=== PATIENT | male | born 1950 | race Caucasian/White ===

== ENCOUNTER 2022-12-07 12:23 | Emergency (ER) | payer MEDICARE, OTHER ==
[2022-12-07] MEDS ORDERED: Iopamidol 755 Mg/ML 100 ML Bottle IVPUSH ONE (14:58)
[2022-12-07] MEDS ORDERED: Sodium Chloride 0.9% 10 ML Syringe FLUSH ONE (15:00)
[2022-12-07] MEDS ORDERED: cefTRIAXone 2 GM in Sodium Chloride 0.9% 100 ML IV ONE (17:36)
[2022-12-07] MEDS ORDERED: Naproxen 500 MG Tab PO ONE (17:55)
[2022-12-07] MEDS ORDERED: Famotidine 20 MG Tab PO ONE (17:56)
== END 2022-12-07 20:00 ==
LOC: JD.ED 12:23
DX: I80.01 Phlebitis and thrombophlebitis of superficial vessels of right lower extremity (principal); N39.0 Urinary tract infection, site not specified; Z88.0 Allergy status to penicillin; Z79.82 Long term (current) use of aspirin
CPT/HCPCS: 36415; 71045; 71275; 80053; 81001; 84484; 85025; 85610; 85730; 87086; 93005; 93971; 96365; 99285; A9270; J0696; J3490; 87088; 87186

== ENCOUNTER 2025-01-03 09:20 | Inpatient (IN) | payer MEDICAID, MEDICARE, OTHER ==
[2025-01-03 09:46] LABS: BASOPHILS ABSOLUTE AUTO 0.3 K/mm3 (0.0-0.2); BASOPHILS PERCENT AUTO 1.1 % (0.0-1.0); EOSINOPHILS ABSOLUTE AUTO 0.2 K/mm3 (0.0-0.4); EOSINOPHILS PERCENT AUTO 0.6 % (0.0-6.0); HEMATOCRIT 66.4 % (42.0-52.0); HEMOGLOBIN 19.1 gm/dl (14.0-18.0); IMMATURE GRAN ABSOLUTE AUTO 1.15 K/mm3 (0.00-0.05); IMMATURE GRAN PERCENT AUTO 3.7 % (0.0-0.4); LYMPHOCYTES PERCENT AUTO 9.6 % (24.0-44.0); MEAN CORPUSCULAR HEMOGLOBIN 25.7 pg (28.0-32.0); MEAN CORPUSCULAR HGB CONC 28.8 g/dl (32.0-36.0); MEAN CORPUSCULAR VOLUME 89.4 fl (83.0-99.0); MONOCYTES ABSOLUTE AUTO 0.8 K/mm3 (0.0-0.8); MONOCYTES PERCENT AUTO 2.4 % (0.0-8.0); NEUTROPHILS ABSOLUTE AUTO 25.8 K/mm3 (1.8-7.7); NEUTROPHILS PERCENT AUTO 82.6 % (41.0-71.0); NRBC ABSOLUTE 0.04 (0.00-0.02); NRBC PERCENT 0.1 % (0.0-0.2); PLATELET COUNT,PLT 93 K/mm3 (150-400); RED BLOOD CELL COUNT 7.43 M/mm3 (4.52-5.90); WHITE BLOOD CELL COUNT,WBC 31.27 K/mm3 (3.9-11.3)
[2025-01-03 09:58] LABS: APPEARANCE,URINE SLT CLOUDY (Clear); BILIRUBIN,URINE NEGATIVE (Negative); COLOR,URINE DARK YELLOW (Yellow); GLUCOSE,URINE NEGATIVE (Negative); KETONES,URINE NEGATIVE (Negative); LEUKOCYTE ESTERASE,URINE NEGATIVE (Negative); NITRITE,URINE NEGATIVE (Negative); OCCULT BLOOD,URINE NEGATIVE (Negative); PH,URINE 5.5 (5.0-8.0); PROTEIN,URINE TRACE (Negative)
[2025-01-03 10:05] LABS: BACTERIA,URINE FEW /hpf (FEW); MUCUS,URINE MODERATE /hpf (FEW); RBC,URINE 0-5 /hpf (0-5); SQUAMOUS EPITHELIAL CELLS,UR 0-5 /hpf (0-5); WBC,URINE 0-5 /hpf (0-5)
[2025-01-03] MEDS: Sodium Chloride 0.9% 500 ML IV ONE ×2 (10:07→11:17)
[2025-01-03] MEDS: Sodium Chloride 0.9% 10 ML Syringe FLUSH PRN (10:07)
[2025-01-03 10:09] LABS: LACTIC ACID 1.9 mmol/L (0.4-2.0)
[2025-01-03 10:20] LABS: A/G RATIO 0.5 (1-2); ALBUMIN 2.8 g/dl (3.4-5.0); ANION GAP 8.9 (5-15); BILIRUBIN TOTAL 0.8 mg/dL (0.2-1.0); EST CRCL DRUG DOSING (CG) 54.67 mL/min; POTASSIUM,K 3.9 mEq/L (3.5-5.1); TSH 3.475 uIU/mL (0.358-3.74)
[2025-01-03 10:42] LABS: INR 1.36; PROTHROMBIN TIME 14.1 SECONDS (9.7-12.0)
[2025-01-03 10:56] LABS: SLIDE REVIEW ABNORMAL SMEAR
[2025-01-03 11:16] LABS: RETICULOCYTE COUNT PERCENT 1.23 % (0.50-2.00)
[2025-01-03] MEDS: Levofloxacin/Dextrose 5%-Water 750 MG in Premix Bag 1 BAG IV ONE (11:16)
[2025-01-03 11:20] LABS: CORONAVIRUS COVID-19 NAA NEGATIVE (NEGATIVE); INFLUENZA A NAA NEGATIVE (NEGATIVE); RESPIRATORY SYNCYTIAL VIR NAA NEGATIVE (NEGATIVE)
[2025-01-03 11:49] LABS: PH,VENOUS 7.44 (7.30-7.40)
[2025-01-03 11:50] LABS: BICARBONATE,VENOUS 30.8 meq/L (22-26); O2 SATURATION VENOUS 99
[2025-01-03] MEDS ORDERED: Acetaminophen 325 MG Tab PO PRN (12:40)
[2025-01-03] MEDS: VANCOmycin 1.5 GM/300 ML 1.5 GM in Premix Bag 1 BAG IV ONE (13:50)
[2025-01-03] MEDS: Lactated Ringers 1,000 ML IV SCH (14:06)
[2025-01-04] MEDS: VANCOmycin 1 GM in Sodium Chloride 0.9% 250 ML IV SCH (01:17)
[2025-01-04 06:18] LABS: BASOPHILS ABSOLUTE AUTO 0.4 K/mm3 (0.0-0.2); BASOPHILS PERCENT AUTO 1.3 % (0.0-1.0); EOSINOPHILS ABSOLUTE AUTO 0.4 K/mm3 (0.0-0.4); EOSINOPHILS PERCENT AUTO 1.1 % (0.0-6.0); HEMATOCRIT 64.1 % (42.0-52.0); HEMOGLOBIN 18.2 gm/dl (14.0-18.0); IMMATURE GRAN ABSOLUTE AUTO 1.31 K/mm3 (0.00-0.05); IMMATURE GRAN PERCENT AUTO 4.3 % (0.0-0.4); LYMPHOCYTES ABSOLUTE AUTO 1.8 K/mm3 (1.0-4.8); MEAN CORPUSCULAR HEMOGLOBIN 25.5 pg (28.0-32.0); MEAN CORPUSCULAR HGB CONC 28.4 g/dl (32.0-36.0); MEAN CORPUSCULAR VOLUME 89.7 fl (83.0-99.0); MONOCYTES ABSOLUTE AUTO 0.7 K/mm3 (0.0-0.8); MONOCYTES PERCENT AUTO 2.1 % (0.0-8.0); NEUTROPHILS ABSOLUTE AUTO 26.3 K/mm3 (1.8-7.7); NEUTROPHILS PERCENT AUTO 85.2 % (41.0-71.0); NRBC ABSOLUTE 0.03 (0.00-0.02); NRBC PERCENT 0.1 % (0.0-0.2); PLATELET COUNT,PLT 84 K/mm3 (150-400); RED BLOOD CELL COUNT 7.15 M/mm3 (4.52-5.90); WHITE BLOOD CELL COUNT,WBC 30.81 K/mm3 (3.9-11.3)
[2025-01-04 06:44] LABS: A/G RATIO 0.5 (1-2); ALBUMIN 2.6 g/dl (3.4-5.0); ANION GAP 8.1 (5-15); BILIRUBIN TOTAL 0.7 mg/dL (0.2-1.0); BUN/CREATININE RATIO 26.3 (14-18); C-REACTIVE PROTEIN 2.37 mg/dL (<0.30); CALCIUM 8.7 mg/dL (8.5-10.1); CREATININE 0.8 mg/dL (0.7-1.3); EST CRCL DRUG DOSING (CG) 68.33 mL/min; POTASSIUM,K 4.1 mEq/L (3.5-5.1); PROTEIN TOTAL,TP 7.4 g/dl (6.4-8.2)
[2025-01-04 07:09] LABS: SLIDE REVIEW ABNORMAL SMEAR
[2025-01-04] MEDS: Lisinopril 10 MG Tab PO SCH (08:32)
[2025-01-04] MEDS: Pantoprazole 40 MG Tab.CR PO SCH (08:32)
[2025-01-04] MEDS: Polyethylene Glycol 3350 Powder 17 GM Packet PO SCH (08:32)
[2025-01-04] MEDS ORDERED: Sodium Chloride 0.9% 10 ML Syringe FLUSH PRN (09:00)
[2025-01-04] MEDS: Lactated Ringers 1,000 ML IV SCH (09:23)
[2025-01-04] MEDS: Enoxaparin 40 MG/0.4 ML Syringe SUBCUT SCH (09:24)
[2025-01-04] MEDS: Levofloxacin/Dextrose 5%-Water 750 MG in Premix Bag 1 BAG IV SCH (11:38)
[2025-01-04 12:46] LABS: HYPOCHRO 3+ /hpf; NEUTROPHILS% 70 % (41-71); TOXIC GRAN Seen (Absent)
[2025-01-04] MEDS: Sodium Chloride 0.9% 100 ML IV SCH (13:07)
[2025-01-04] MEDS: Iopamidol 755 Mg/ML 100 ML Bottle IVPUSH ONE (13:08)
[2025-01-04] MEDS: cefTRIAXone 1 GM Vial IVPUSH SCH (15:36)
[2025-01-04] MEDS ORDERED: metroNIDAZOLE 500 MG Tab PO SCH (16:00)
[2025-01-04] MEDS: metroNIDAZOLE/Normal Saline 500 MG in Premix Bag 1 BAG IV SCH (16:05)
[2025-01-04] MEDS ORDERED: LORazepam 2 MG/ML SDV IVPUSH PRN (19:14)
[2025-01-05 04:55] LABS: BASOPHILS ABSOLUTE AUTO 0.4 K/mm3 (0.0-0.2); BASOPHILS PERCENT AUTO 1.3 % (0.0-1.0); EOSINOPHILS ABSOLUTE AUTO 0.3 K/mm3 (0.0-0.4); EOSINOPHILS PERCENT AUTO 1.1 % (0.0-6.0); HEMOGLOBIN 18.3 gm/dl (14.0-18.0); IMMATURE GRAN ABSOLUTE AUTO 0.99 K/mm3 (0.00-0.05); IMMATURE GRAN PERCENT AUTO 3.5 % (0.0-0.4); LYMPHOCYTES ABSOLUTE AUTO 1.9 K/mm3 (1.0-4.8); LYMPHOCYTES PERCENT AUTO 6.8 % (24.0-44.0); MEAN CORPUSCULAR HEMOGLOBIN 25.6 pg (28.0-32.0); MEAN CORPUSCULAR HGB CONC 29.5 g/dl (32.0-36.0); MEAN CORPUSCULAR VOLUME 86.8 fl (83.0-99.0); MONOCYTES ABSOLUTE AUTO 0.6 K/mm3 (0.0-0.8); MONOCYTES PERCENT AUTO 2.1 % (0.0-8.0); NEUTROPHILS ABSOLUTE AUTO 24.2 K/mm3 (1.8-7.7); NEUTROPHILS PERCENT AUTO 85.2 % (41.0-71.0); NRBC ABSOLUTE 0.03 (0.00-0.02); NRBC PERCENT 0.1 % (0.0-0.2); PLATELET COUNT,PLT 80 K/mm3 (150-400); RED BLOOD CELL COUNT 7.14 M/mm3 (4.52-5.90); WHITE BLOOD CELL COUNT,WBC 28.43 K/mm3 (3.9-11.3)
[2025-01-05 05:51] LABS: A/G RATIO 0.5 (1-2); ALBUMIN 2.4 g/dl (3.4-5.0); BILIRUBIN TOTAL 0.6 mg/dL (0.2-1.0); C-REACTIVE PROTEIN 2.29 mg/dL (<0.30); CALCIUM 8.7 mg/dL (8.5-10.1); CREATININE 0.8 mg/dL (0.7-1.3); EST CRCL DRUG DOSING (CG) 68.33 mL/min; MAGNESIUM 1.9 mg/dL (1.8-2.4); PHOSPHORUS 3.4 mg/dL (2.6-4.7); PROTEIN TOTAL,TP 7.4 g/dl (6.4-8.2)
[2025-01-05 06:32] LABS: SLIDE REVIEW ABNORMAL SMEAR
[2025-01-05] MEDS: Albuterol/Ipratropium 3.0-0.5 MG/3 ML Neb Soln NEB PRN (20:20)
[2025-01-06 04:51] LABS: BASOPHILS ABSOLUTE AUTO 0.4 K/mm3 (0.0-0.2); BASOPHILS PERCENT AUTO 1.4 % (0.0-1.0); EOSINOPHILS ABSOLUTE AUTO 0.3 K/mm3 (0.0-0.4); EOSINOPHILS PERCENT AUTO 1.2 % (0.0-6.0); HEMATOCRIT 59.8 % (42.0-52.0); HEMOGLOBIN 17.4 gm/dl (14.0-18.0); IMMATURE GRAN ABSOLUTE AUTO 1.18 K/mm3 (0.00-0.05); IMMATURE GRAN PERCENT AUTO 4.5 % (0.0-0.4); LYMPHOCYTES ABSOLUTE AUTO 2.3 K/mm3 (1.0-4.8); LYMPHOCYTES PERCENT AUTO 8.8 % (24.0-44.0); MEAN CORPUSCULAR HEMOGLOBIN 25.3 pg (28.0-32.0); MEAN CORPUSCULAR HGB CONC 29.1 g/dl (32.0-36.0); MONOCYTES ABSOLUTE AUTO 0.7 K/mm3 (0.0-0.8); MONOCYTES PERCENT AUTO 2.6 % (0.0-8.0); NEUTROPHILS ABSOLUTE AUTO 21.6 K/mm3 (1.8-7.7); NEUTROPHILS PERCENT AUTO 81.5 % (41.0-71.0); NRBC ABSOLUTE 0.03 (0.00-0.02); NRBC PERCENT 0.1 % (0.0-0.2); PLATELET COUNT,PLT 83 K/mm3 (150-400); RED BLOOD CELL COUNT 6.87 M/mm3 (4.52-5.90); WHITE BLOOD CELL COUNT,WBC 26.43 K/mm3 (3.9-11.3)
[2025-01-06 05:26] LABS: ANION GAP 8.5 (5-15); C-REACTIVE PROTEIN 1.61 mg/dL (<0.30); CALCIUM 8.6 mg/dL (8.5-10.1); CREATININE 0.8 mg/dL (0.7-1.3); EST CRCL DRUG DOSING (CG) 68.33 mL/min; POTASSIUM,K 4.5 mEq/L (3.5-5.1)
[2025-01-06 07:15] LABS: SLIDE REVIEW ABNORMAL SMEAR
[2025-01-06] MEDS: Aspirin 325 MG Tab.EC PO SCH (21:04)
[2025-01-07 04:41] LABS: BASOPHILS ABSOLUTE AUTO 0.4 K/mm3 (0.0-0.2); BASOPHILS PERCENT AUTO 1.6 % (0.0-1.0); EOSINOPHILS ABSOLUTE AUTO 0.3 K/mm3 (0.0-0.4); EOSINOPHILS PERCENT AUTO 1.3 % (0.0-6.0); HEMATOCRIT 63.2 % (42.0-52.0); HEMOGLOBIN 18.3 gm/dl (14.0-18.0); IMMATURE GRAN ABSOLUTE AUTO 0.75 K/mm3 (0.00-0.05); IMMATURE GRAN PERCENT AUTO 3.4 % (0.0-0.4); LYMPHOCYTES ABSOLUTE AUTO 1.9 K/mm3 (1.0-4.8); LYMPHOCYTES PERCENT AUTO 8.4 % (24.0-44.0); MEAN CORPUSCULAR HEMOGLOBIN 25.3 pg (28.0-32.0); MEAN CORPUSCULAR VOLUME 87.3 fl (83.0-99.0); MONOCYTES ABSOLUTE AUTO 0.5 K/mm3 (0.0-0.8); NEUTROPHILS ABSOLUTE AUTO 18.5 K/mm3 (1.8-7.7); NEUTROPHILS PERCENT AUTO 83.3 % (41.0-71.0); NRBC ABSOLUTE 0.02 (0.00-0.02); NRBC PERCENT 0.1 % (0.0-0.2); PLATELET COUNT,PLT 80 K/mm3 (150-400); RED BLOOD CELL COUNT 7.24 M/mm3 (4.52-5.90); WHITE BLOOD CELL COUNT,WBC 22.25 K/mm3 (3.9-11.3)
[2025-01-07 05:07] LABS: ANION GAP 8.1 (5-15); BUN/CREATININE RATIO 27.5 (14-18); C-REACTIVE PROTEIN 1.15 mg/dL (<0.30); CALCIUM 8.7 mg/dL (8.5-10.1); CREATININE 0.8 mg/dL (0.7-1.3); EST CRCL DRUG DOSING (CG) 68.33 mL/min; MAGNESIUM 2.1 mg/dL (1.8-2.4); POTASSIUM,K 4.1 mEq/L (3.5-5.1)
[2025-01-07 05:30] LABS: SLIDE REVIEW ABNORMAL SMEAR
[2025-01-08 05:30] LABS: BASOPHILS ABSOLUTE AUTO 0.3 K/mm3 (0.0-0.2); BASOPHILS PERCENT AUTO 1.6 % (0.0-1.0); EOSINOPHILS ABSOLUTE AUTO 0.3 K/mm3 (0.0-0.4); EOSINOPHILS PERCENT AUTO 1.6 % (0.0-6.0); HEMATOCRIT 62.6 % (42.0-52.0); HEMOGLOBIN 18.1 gm/dl (14.0-18.0); IMMATURE GRAN ABSOLUTE AUTO 0.97 K/mm3 (0.00-0.05); IMMATURE GRAN PERCENT AUTO 4.7 % (0.0-0.4); LYMPHOCYTES PERCENT AUTO 9.6 % (24.0-44.0); MEAN CORPUSCULAR HEMOGLOBIN 25.4 pg (28.0-32.0); MEAN CORPUSCULAR HGB CONC 28.9 g/dl (32.0-36.0); MEAN CORPUSCULAR VOLUME 87.8 fl (83.0-99.0); MONOCYTES ABSOLUTE AUTO 0.6 K/mm3 (0.0-0.8); MONOCYTES PERCENT AUTO 2.7 % (0.0-8.0); NEUTROPHILS ABSOLUTE AUTO 16.4 K/mm3 (1.8-7.7); NEUTROPHILS PERCENT AUTO 79.8 % (41.0-71.0); NRBC ABSOLUTE 0.02 (0.00-0.02); NRBC PERCENT 0.1 % (0.0-0.2); PLATELET COUNT,PLT 79 K/mm3 (150-400); RED BLOOD CELL COUNT 7.13 M/mm3 (4.52-5.90); WHITE BLOOD CELL COUNT,WBC 20.56 K/mm3 (3.9-11.3)
[2025-01-08 05:35] LABS: ANION GAP 11.2 (5-15); BUN/CREATININE RATIO 32.9 (14-18); C-REACTIVE PROTEIN 0.77 mg/dL (<0.30); CALCIUM 8.7 mg/dL (8.5-10.1); CREATININE 0.7 mg/dL (0.7-1.3); EST CRCL DRUG DOSING (CG) 78.1 mL/min; POTASSIUM,K 4.2 mEq/L (3.5-5.1)
[2025-01-08 09:13] LABS: SLIDE REVIEW ABNORMAL SMEAR
[2025-01-08] MEDS: Dextrose 5% in Water 1,000 ML IV SCH (09:52)
[2025-01-08] MEDS: Hyaluronidase, Human Recomb. 150 Unit/ML Vial SUBCUT ONE (19:26)
[2025-01-09 06:25] LABS: ANION GAP 7.9 (5-15); BUN/CREATININE RATIO 26.3 (14-18); CALCIUM 8.4 mg/dL (8.5-10.1); CREATININE 0.8 mg/dL (0.7-1.3); EST CRCL DRUG DOSING (CG) 68.33 mL/min; POTASSIUM,K 3.9 mEq/L (3.5-5.1)
== END 2025-01-11 12:54 | disposition home or self-care (01) | DRG 871 ==
LOC: JD.ED 09:20 → JD.MS 12:40
PROVIDERS: ADMIT Family Medicine; ATTEND Student in an Organized Health Care Education/Training Program
DX: A41.9 Sepsis, unspecified organism (principal); E87.1 Hypo-osmolality and hyponatremia; G93.41 Metabolic encephalopathy; J18.9 Pneumonia, unspecified organism; J96.01 Acute respiratory failure with hypoxia; J69.0 Pneumonitis due to inhalation of food and vomit; F03.94 Unspecified dementia, unspecified severity, with anxiety; E87.0 Hyperosmolality and hypernatremia; J98.11 Atelectasis; Z66 Do not resuscitate; R65.20 Severe sepsis without septic shock; R13.10 Dysphagia, unspecified; G93.89 Other specified disorders of brain; I45.10 Unspecified right bundle-branch block; D75.1 Secondary polycythemia; I10 Essential (primary) hypertension; K21.9 Gastro-esophageal reflux disease without esophagitis; Z88.0 Allergy status to penicillin; Z79.899 Other long term (current) drug therapy; Z79.82 Long term (current) use of aspirin; Z87.820 Personal history of traumatic brain injury
CPT/HCPCS: 0241U; 36415; 70450; 71045; 71275; 80048; 80053; 81001; 82140; 82803; 82947; 83605; 83735; 83880; 84100; 84443; 84484; 85025; 85045; 85610; 85730; 86140; 87040; 87641; 92610; 93005; 94640; 94660; 94761; 94762; 96361; 96365; 97110; 97161; 99285; 93010; 99223; 99232; 99233; 99238; A9270-GY; C1758; J0696; J1650; J1836; J1956; J3372; J3490; J7030; J7070; J7120; Q9967